=== PATIENT | female | born 1960 | race Asian ===

== ENCOUNTER → 2024-10-07 | Outpatient (CLI) | payer BC, SELFPAY ==
[2024-10-07 13:04] LABS: Collection Type, Urine Clean Catch
[2024-10-07 13:22] LABS: Bacteria,Urine 1+; Bilirubin,Urine 1+ (Negative); Blood,Urine Trace (Negative); Color,Urine Drk-Yellow (Lt Yel-Yel); Glucose, Urine Negative (Negative); Ketones,Urine Negative (Negative); Leukocyte Esterase,Urine Positive (Negative); Nitrite,Urine Positive (Negative); PH,Urine 6.5 (5.0-7.0); Protein,Urine Trace (Neg - Trace); RBC,Urine 6 /hpf (0-3); Specific Gravity,Urine 1.015 (1.001-1.035); Squamous Epithelial Cell,Urine < 1 /hpf (0-5); Transitional Epi Cells,Urine < 1 /hpf (0-5); WBC,Urine 503 /hpf (0-5)
[2024-10-07 13:27] LABS: Glucose Estimated Average 131 mg/dL (80-131); Hemoglobin A1C 6.2 % Hgb (4.8-6.0)
[2024-10-07 13:53] LABS: Clarity,Urine Hazy (Clear/Hazy); Culture Indicated,Urine Yes
== END | disposition home or self-care (01) ==
LOC: COPL 12:05
PROVIDERS: PCP Internal Medicine; Referring Provider Internal Medicine; Visit Provider Internal Medicine
DX: Z00.00 Encounter for general adult medical examination without abnormal findings (principal); N39.0 Urinary tract infection, site not specified
CPT/HCPCS: 36415; 81001; 83036; 87077; 87086; 87186

== ENCOUNTER → 2025-02-14 | Outpatient (CLI) | payer BC, SELFPAY ==
--- NOTE | 2025-02-14 13:45 | XR_ITS ---
Examination: Diagnostic digital mammography, unilateral, LEFT Computer aided detection 3-D breast Tomosynthesis, unilateral Date and time of exam: February 14, 2025 1320 hours INDICATIONS: Circumscribed 10 mm nodule retroareolar region left breast on mammogram August 19, 2024 Technique: Nonmagnified MLO, CC views of the left breast have been obtained, reconstructed from 3-D Tomosynthesis images. R2 computer aided detection program utilized for evaluation of suspicious masses and/or abnormal calcifications. 3-D Tomosynthesis images obtained. Findings: The breast is heterogeneously dense, which may obscure small masses Stable nodule retroareolar region left breast, 8 mm No suspicious mass Impression: BI-RADS category 2: Benign findings Return to yearly follow-up mammography
== END | disposition home or self-care (01) ==
LOC: CDIM 13:10
PROVIDERS: Referring Provider Internal Medicine; Visit Provider Internal Medicine
DX: R92.322 Mammographic fibroglandular density, left breast (principal)
CPT/HCPCS: 77061; 77065; G0279

== ENCOUNTER → 2025-05-26 | Outpatient (CLI) | payer BC, SELFPAY ==
[2025-05-26 16:08] LABS: Basophils # (Auto) 0.1 Thou/mm3 (0.0-0.2); Basophils % (Auto) 1 % (0-2.5); Eosinophils # (Auto) 0.2 Thou/mm3 (0.0-0.5); Eosinophils % (Auto) 3 % (0-10); Hematocrit 41.1 % (36.0-46.0); Hemoglobin 13.8 g/dL (12.0-16.0); Immature Granulocytes Auto 0.02 Thou/mm3 (0.00-0.00); Lymphocytes # (Auto) 1.8 Thou/mm3 (1.0-4.8); Lymphocytes % (Auto) 28 % (10-50); Mean Corpuscular HGB Conc 33.6 g/dl (31.0-37.0); Mean Corpuscular Hemoglobin 32.2 pg (25.0-35.0); Mean Corpuscular Volume 96 fL (80-100); Monocytes # (Auto) 0.4 Thou/mm3 (0.0-0.8); Monocytes % (Auto) 6 % (0-12); Neutrophils # (Auto) 4.0 Thou/mm3 (1.8-7.7); Neutrophils % (Auto) 62 % (37-80); Nucleated Red Blood Cell # 0.00 Thou/mm3 (0.00-0.00); Nucleated Red Blood Cell % 0 /100 WBC (0); Platelet Count 311 Thou/mm3 (140-440); RDW Standard Deviation 49.2 fL (36.4-46.3); Red Blood Count 4.29 Miln/mm3 (4.00-5.20); White Blood Count 6.5 Thou/mm3 (3.6-11.0)
[2025-05-26 16:20] LABS: Glucose Estimated Average 126 mg/dL (80-131); Hemoglobin A1C 6.0 % Hgb (4.8-6.0)
[2025-05-26 16:31] LABS: Vitamin D 25 Hydroxy Total 35.0 ng/mL (7.3-40.2)
[2025-05-26 16:33] LABS: Alanine Aminotransferase 15 U/L (10-49); Albumin, Serum 4.2 gm/dL (3.4-4.8); Albumin/Globulin Ratio 2.0 (1.2-2.2); Alkaline Phosphatase 74 U/L (46-116); Anion Gap 11 (7-16); Aspartate Amino Transferase 20 U/L (0-34); BUN/Creatinine Ratio 21 Ratio (12-20); Bilirubin,Total 0.4 mg/dL (0.3-1.2); Blood Urea Nitrogen 17 mg/dL (9-23); Calcium 9.1 mg/dL (8.3-10.6); Calcium (Corrected) 9.1 mg/dL (8.5-10.1); Carbon Dioxide 22.5 mMol/L (20.0-31.0); Cardiac Risk Estimate 2.6 RATIO (3.7-5.6); Chloride 111 mMol/L (98-107); Cholesterol 198 mg/dL (132-200); Creatinine (Component) 0.8 mg/dL (0.6-1.3); Free T4 (Free Thyroxine) 1.15 ng/dL (0.89-1.76); Globulin 2.1 gm/dL (2.3-3.5); Glucose 97 mg/dL (74-106); HDL Cholesterol 76 mg/dL (40-60); LDL Cholesterol,Calculated 81 mg/dL (0-130); Osmolality,Calculated 288 (275-295); Potassium 4.1 mMol/L (3.4-5.1); Sodium 144 mMol/L (136-145); Thyroid Stimulating Hormone 2.36 uIU/mL (0.55-4.78); Total Protein 6.3 gm/dL (5.7-8.2); Triglycerides 205 mg/dL (30-150); eGFR > 60 See Note
== END | disposition home or self-care (01) ==
LOC: COPL 15:26
PROVIDERS: PCP Internal Medicine; Referring Provider Internal Medicine; Visit Provider Internal Medicine
DX: Z00.00 Encounter for general adult medical examination without abnormal findings (principal)
CPT/HCPCS: 36415; 80053; 80061; 82306; 83036; 84439; 84443; 85025

== ENCOUNTER → 2025-06-14 | Outpatient (CLI) | payer BC, SELFPAY ==
--- NOTE | 2025-06-14 09:00 | XR_ITS ---
Examination: Screening digital mammography, bilateral Computer aided detection 3-D breast Tomosynthesis, bilateral Date and time of exam: June 14, 2025 0901 hours Compared to mammograms dating to March 02, 2017 Indication: Screening Technique: Nonmagnified MLO, CC views of the breasts to been obtained, reconstructed from 3-D Tomosynthesis images. R2 computer aided detection program utilized for evaluation of suspicious masses and/or abnormal calcifications. 3-D Tomosynthesis images obtained. Findings: The breasts are heterogeneously dense, which may obscure small masses Benign calcifications. No interval suspicious masses Impression: BI-RADS category II: Benign Findings. Recommend 1 year follow-up mammogram.
== END | disposition home or self-care (01) ==
PROVIDERS: PCP Internal Medicine; Referring Provider Internal Medicine; Visit Provider Internal Medicine
DX: Z12.31 Encounter for screening mammogram for malignant neoplasm of breast (principal); R92.323 Mammographic fibroglandular density, bilateral breasts; R92.1 Mammographic calcification found on diagnostic imaging of breast
CPT/HCPCS: 77063; 77067

== ENCOUNTER 2025-09-18 21:57 | Inpatient (IN) | payer BC, SELFPAY ==
[2025-09-18 21:59] VITALS: BMI 27.3
--- NOTE | 2025-09-18 22:05 | XR_ITS ---
EXAMINATION: PA chest single view TECHNIQUE: 1. Upright PA chest single view Date and time: September 18, 2025, 1007 hours, comparison April 18, 2024 INDICATIONS: Epigastric pain chest pain beginning 3 hours ago. FINDINGS: Normal heart size Lungs are clear Moderate osteopenia IMPRESSION: No active disease
[2025-09-18 22:06] VITALS: BP 160/83; PULSE 89; RESP 20; TEMP 36.8; O2SAT 99
--- NOTE | 2025-09-18 22:06 | XR_ITS ---
Examination: CT chest with intravenous contrast CT abdomen with intravenous contrast CT pelvis with intravenous contrast 2-D coronal and sagittal reconstructions Time of exam: September 19, 2025, 0039 hours INDICATIONS: Chest pain abdominal pain vomiting heartburn beginning 1800 hours yesterday CTDI: vol (mGy) : 9.46 DLP: (mGycm): 622 Technique: Multiple axial images of the chest, abdomen and pelvis with intravenous contrast, 3.0 mm slice thickness. Images obtained post intravenous injection Isovue 370 60 cc. 2-D sagittal and coronal reconstructions. Low dose protocols were performed. One or more of the following dose reduction techniques were used; automated exposure control, adjustment of the mA and/or KV according to patient size, use of iterative reconstruction technique. Findings: Bilateral thyroid nodules, the largest on the right side 14 mm No thoracic aortic aneurysm dilatation Pulmonary artery opacification is poor No paratracheal tracheobronchial or bronchopulmonary adenopathy 2 mm pulmonary nodule right upper lobe No pneumonia or pulmonary edema No pleural disease No visualized liver or splenic lesion Contracted gallbladder No pancreatic or adrenal mass No renal or ureteral calculi, no hydronephrosis 26 mm fat-containing umbilical hernia Normal appendix Multiple prominently fluid distended small bowel loops Atrophic uterus Moderate osteopenia Minimal air in the urinary bladder, clinical correlation advised IMPRESSION: High-grade small bowel obstruction, consider Gastrografin small bowel study follow-up Bilateral thyroid nodules, consider dedicated thyroid sonography follow-up
--- NOTE | 2025-09-18 22:07 | PD.EDRME ---
Rapid Medical Screening Exam RME Arrival date/time: 09/18/25 21:57 Chief Complaint: Abdominal Pain Time Seen by Provider: 09/18/25 21:59 Vital signs: Vital Signs Temperature 98.2 F 09/18/25 22:06 Pulse Rate 89 09/18/25 22:06 Respiratory Rate 20 09/18/25 22:06 Blood Pressure 160/83 H 09/18/25 22:06 Pulse Oximetry (%) 99 09/18/25 22:06 Oxygen Delivery Method Room Air 09/18/25 22:06 RME Narrative: 65-year-old female with a past medical history of diabetes complaining of sudden onset epigastric pain with nausea vomiting, feeling as if her abdomen is expanding. I briefly performed a screening evaluation to initiate work-up and expedite care. Complete history, physical exam, and plan of care is deferred to the provider in the main ED. Exam: Head: Normocephalic, atraumatic. Respiratory: Normal effort. No respiratory distress or accessory muscle use. Neuro: Speech normal. Skin: Warm, dry, normal color. Psych: Pleasant. Normal affect. Cooperative. Clinical Impression: Epigastric pain
[2025-09-18 22:45] LABS: Basophils # (Auto) 0.1 Thou/mm3 (0.0-0.2); Basophils % (Auto) 0 % (0-2.5); Eosinophils # (Auto) 0.2 Thou/mm3 (0.0-0.5); Eosinophils % (Auto) 2 % (0-10); Hematocrit 43.9 % (36.0-46.0); Hemoglobin 14.4 g/dL (12.0-16.0); Immature Granulocytes Auto 0.04 Thou/mm3 (0.00-0.00); Lymphocytes # (Auto) 1.9 Thou/mm3 (1.0-4.8); Lymphocytes % (Auto) 15 % (10-50); Mean Corpuscular HGB Conc 32.8 g/dl (31.0-37.0); Mean Corpuscular Hemoglobin 31.7 pg (25.0-35.0); Mean Corpuscular Volume 97 fL (80-100); Monocytes # (Auto) 0.7 Thou/mm3 (0.0-0.8); Monocytes % (Auto) 5 % (0-12); Neutrophils # (Auto) 9.3 Thou/mm3 (1.8-7.7); Neutrophils % (Auto) 77 % (37-80); Nucleated Red Blood Cell # 0.00 Thou/mm3 (0.00-0.00); Nucleated Red Blood Cell % 0 /100 WBC (0); Platelet Count 277 Thou/mm3 (140-440); RDW Standard Deviation 46.5 fL (36.4-46.3); Red Blood Count 4.54 Miln/mm3 (4.00-5.20); White Blood Count 12.1 Thou/mm3 (3.6-11.0)
[2025-09-18 23:03] LABS: Alanine Aminotransferase 23 U/L (10-49); Albumin, Serum 4.9 gm/dL (3.4-4.8); Albumin/Globulin Ratio 2.7 (1.2-2.2); Alkaline Phosphatase 89 U/L (46-116); Anion Gap 9 (7-16); Aspartate Amino Transferase 27 U/L (0-34); BUN/Creatinine Ratio 18 Ratio (12-20); Bilirubin,Total 0.3 mg/dL (0.3-1.2); Blood Urea Nitrogen 14 mg/dL (9-23); Calcium 9.4 mg/dL (8.3-10.6); Calcium (Corrected) 9.4 mg/dL (8.5-10.1); Carbon Dioxide 24.9 mMol/L (20.0-31.0); Chloride 110 mMol/L (98-107); Creatinine (Component) 0.8 mg/dL (0.6-1.3); Estimated Creatinine Clearance 78.1 mL/min (>60); Globulin 1.8 gm/dL (2.3-3.5); Glucose 140 mg/dL (74-106); Lipase 54 U/L (12-53); Osmolality,Calculated 289 (275-295); Potassium 4.0 mMol/L (3.4-5.1); Sodium 144 mMol/L (136-145); Total Protein 6.7 gm/dL (5.7-8.2); Troponin I < 0.002 ng/mL (0.0-0.045); eGFR > 60 See Note
[2025-09-18 23:09] LABS: INR 0.9 (0.9-1.3); Partial Thromboplastin Time 26.8 Seconds (22.0-36.0); Prothrombin Time 9.8 Seconds (9.0-12.2)
--- NOTE | 2025-09-18 23:48 | PD.EDABDPN ---
ED Abdominal Pain RME/HPI General Chief Complaint: Abdominal Pain Stated complaint: ABD PAIN RADIATES TO BACK, VOMITING, HURTBURN Time seen by provider: 09/18/25 21:59 Arrival date/time: 09/18/25 21:57 RME / HPI RME / HPI narrative: 65-year-old female with a past medical history of diabetes complaining of sudden onset epigastric pain with nausea vomiting, feeling as if her abdomen is expanding. I briefly performed a screening evaluation to initiate work-up and expedite care. Complete history, physical exam, and plan of care is deferred to the provider in the main ED. Dr. 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 Patient reports associated N/V. Denies any diarrhea, fever, chills, or any other associated symptoms. Denies any history of similar symptoms. NKA. Related Data Home Medications ?Medication ?Instructions ?Recorded ?Confirmed Metformin Hcl 500 mg PO BID ##0 01/30/13 02/14/20 FLUTICASONE/SALMETEROL (ADVAIR 1 puff inhalation BID ##60 06/25/16 02/14/20 100/50 DISKUS) Losartan Potassium * (COZAAR *) 25 mg PO BID ##60 06/25/16 02/14/20 Tramadol Hcl 50 mg PO PRN PRN PAIN ##60 06/25/16 02/14/20 albuterol sulfate 90 mcg/actuation 2 puff inhalation PRN PRN WHEEZING 06/25/16 02/14/20 aerosol inhaler (ProAir HFA) ##9 insulin detemir U-100 100 unit/mL 5 unit subcut QDAY blood sugar 06/25/16 02/14/20 (3 mL) subcutaneous pen (Levemir ##30 FlexTouch U-100 Insulin) Previous Rx's ?Medication ?Instructions ?Recorded promethazine-DM 6.25 mg-15 mg/5 mL 5 ml PO Q6H PRN cough #120 mL 02/14/20 oral syrup Allergies Allergy/AdvReac Type Severity Reaction Status Date / Time No Known Allergies Allergy Verified 09/18/25 21:59 Review of Systems Review of Systems Systems Reviewed: All systems reviewed, normal except as documented Past Medical History Past Medical History CARDIAC: Negative Congestive Heart Failure RESPIRATORY: Negative Chronic Obstructive Pulmonary Disease (COPD) GENITOURINARY: Negative Renal Disease ENDOCRINE: Positive Diabetes Mellitus Type 2; Negative Diabetes Mellitus Type 1 Social History SMOKING STATUS: Never smoker ED Exam Narrative Physical exam: Generally patient is alert and vomiting here in the emergency room, heart regular rate and rhythm, lungs clear to auscultation equal bilaterally, abdomen is soft slightly distended and tympanic and tender to the midportion of the abdomen, neurologic exam [place] Coma Scale 15 without focal motor deficit Course Quality Measures none Orders Category Date Time Status CT Screening NOW Care 09/18/25 22:06 Active EKG (ED ONLY) *Do not use* NOW Care 09/18/25 22:03 Completed EKG (ED ONLY) *Do not use* NOW Care 09/18/25 22:05 Completed Insert NG / OG tube NOW Care 09/19/25 03:07 Active NPO NOW Care 09/18/25 22:05 Active Diet NPO (NOW) Diet 09/18/25 22:[address] chest abdomen pelvis w Stat Exams 09/18/25 22:06 Taken EKG (ED Only) Stat Exams 09/18/25 22:03 Ordered EKG (ED Only) Stat Exams 09/18/25 22:05 Stop Req XR chest 1V Stat Exams 09/18/25 22:05 Completed CBC Stat Lab 09/18/25 22:37 Completed CMP [Comprehensive Metabolic Panel] Stat Lab 09/18/25 22:37 Completed Lipase Stat Lab 09/18/25 22:37 Completed Partial Thromboplastin Time Stat Lab 09/18/25 22:37 Completed Prothrombin Time with INR Stat Lab 09/18/25 22:37 Completed Troponin I Stat Lab 09/18/25 22:37 Completed Midazolam Inj [Versed Inj] Med 09/19/25 03:07 Once 4 mg IVP X1 ONE Morphine* Inj Med 09/18/25 23:11 Discontinued 4 mg IV X1 ONE Morphine* Inj Med 09/19/25 01:32 Discontinued 4 mg IVP X1 ONE Ondansetron Inj [Zofran Inj] Med 09/18/25 23:11 Discontinued 4 mg IVP X1 ONE Ondansetron Inj [Zofran Inj] Med 09/19/25 01:32 Discontinued 4 mg IVP X1 ONE Pantoprazole Inj [Protonix Inj] Med 09/18/25 23:54 Discontinued 40 mg IVP X1 ONE Vital Signs Vital signs: Vital Signs Temperature 98.2 F 09/18/25 22:06 Pulse Rate 89 09/18/25 22:06 Respiratory Rate 20 09/18/25 22:06 Blood Pressure 160/83 H 09/18/25 22:06 Pulse Oximetry (%) 99 09/18/25 22:06 Oxygen Delivery Method Room Air 09/18/25 22:06 Abdominal Pain MDM MDM Narrative MDM Narrative:: Scribe Attestation: 09/18/25 - Marco Antonio, Debra Mahoney am scribing for and in the presence of Dr. Louis. I interpreted all labs. CT scan done the abdomen and pelvis with IV contrast showed evidence for small bowel obstruction. I did discuss this case with general surgeon on-call, Dr. Carias who agrees with NG tube placement. The patient has had gastric bypass surgery with Ramu-en-Y procedure in the past. Patient has received morphine 4 mg IV x 2 and Zofran 4 mg IV x 2 and hydrated with normal saline. I discussed this case with the hospitalist and the patient will be admitted to the hospital for further treatment and evaluation. The patient will receive Versed 4 mg IV prior to NG tube placement. Patient data External records reviewed:: [facility] previous records (Per chart review, patient has no relevant previous ED visits.) Clinical information provided by:: patient Social determinants that could affect healthcare access:: none Patient has the following chronic illnesses:: DM, HTN How is presenting disease/condition affected by chronic disease/condition?: uneffected by Evaluation data The following diagnostics were reviewed and interpreted by me:: lab results and radiology exam(s) Lab and/or radiology exams considered but not ordered:: none Interpretation Summary: [facility] Preliminary Report Draft Patient: PATRICIA BALL. Record#: [id number] Birthdate: 1960 Age/Sex: 65 / F Location: [facility] Attending Dr: Ordering Physician: Date of Service: Procedure(s): Accession Number(s): cc: ~ CT scan of the chest, abdomen and pelvis with intravenous contrast (axial sections with sagittal and coronal reformats) September 19, 2025 at 0037 hours Clinical History: Epigastric pain. Comparison: None available at the time of this report. Findings: The lungs are clear. There is no pleural effusion or pneumothorax. The aorta is unremarkable without evidence of dissection or aneurysm. No evidence of mediastinal mass or lymphadenopathy. There is no pericardial effusion. The liver, gallbladder, spleen, pancreas, adrenals and kidneys are unremarkable. Dilated small bowel loops measuring up to 5.1 cm with air-fluid levels within and transition point in the mid abdomen. The appendix is within normal limits. Air within the urinary bladder. There is no free fluid or air. Degenerative changes of the imaged portions of the spine. No acute fractures. Hypodense thyroid nodules, the largest measuring 1.4 cm. Status post gastric bypass surgery. Fat-containing umbilical hernia without evidence of inflammation. The uterus and ovaries are within normal limits. Impression: Small bowel obstruction, probably due to adhesions. Air within the urinary bladder suspicious for cystitis. Hypodense thyroid nodules, please correlate with thyroid function tests and ultrasound. Discussion Details: Results verbally communicated to : Dr. Louis at 02:26 AM 09/19/2025 Report Electronically Signed By: Dylan Del Rosario 09/19/2025 2:46:03 AM [EST] Medications / Prescriptions Medications or Prescriptions considered but not ordered:: none Medication administrations:: Medication Administration History Midazolam HCl (Midazolam Inj 1 Mg/Ml Vial 2 Ml) 4 mg IVP X1 ONE Stop: 09/19/25 03:08 Discontinued Medications Morphine Sulfate (Morphine Sulf Inj 4 Mg/Ml Vial) 4 mg IV X1 ONE Stop: 09/18/25 23:12 Last Admin: 09/18/25 23:49 Dose: 4 mg Documented By: EE Morphine Sulfate (Morphine Sulf Inj 4 Mg/Ml Vial) 4 mg IVP X1 ONE Stop: 09/19/25 01:33 Last Admin: 09/19/25 02:06 Dose: 4 mg Documented By: EE Ondansetron HCl (Ondansetron Inj 2 Mg/Ml Inj 2 Ml) 4 mg IVP X1 ONE; Protocol Stop: 09/18/25 23:12 Last Admin: 09/18/25 23:49 Dose: 4 mg Documented By: EE Ondansetron HCl (Ondansetron Inj 2 Mg/Ml Inj 2 Ml) 4 mg IVP X1 ONE; Protocol Stop: 09/19/25 01:33 Last Admin: 09/19/25 02:06 Dose: 4 mg Documented By: ROMY Pantoprazole Sodium (Pantoprazole Inj 40 Mg Vial) 40 mg IVP X1 ONE Stop: 09/18/25 23:55 Last Admin: 09/19/25 00:00 Dose: 40 mg Documented By: ROMY see above Consultations Consultation(s) initiated? (list below): Yes Diagnosis Differential diagnosis abdominal pain: other (See MDM) Most likely diagnosis given after review of the tests above:: see clinical impression below Admission Indicated Admission indicated?: indicated Admission Request Was there a request for admission?: Yes Admission Attestation Admission request attestation: Discussed case with [] from Hospitalist service regarding admission. Discussed patients ED course, exam findings, labs, and radiology results. The Hospitalist [agrees,declines] to accept the patient for admission. Disposition Plan Disposition Plan: Admit Discharge Plan Plan Patient Disposition: Admit Acute Care w/in Hospital Prescriptions/Referrals Prescriptions/Med Rec: No Action Metformin Hcl 500 MG tablet 500 mg PO BID Qty: 0 Levemir FlexTouch U100 Insulin 100 UNIT/1 ML insulin pen 5 unit Sub-Q QDAY Qty: 30 Losartan Potassium * (COZAAR *) 25 MG tablet 25 mg PO BID Qty: 60 Tramadol Hcl 50 MG tablet 50 mg PO PRN PRN (Reason: PAIN) Qty: 60 albuterol sulfate [ProAir HFA] 8.5 GM HFA aerosol inhaler 2 puff Inhalation PRN PRN (Reason: WHEEZING) Qty: 9 FLUTICASONE/SALMETEROL (ADVAIR 100/50 DISKUS) 1 DISK W/DEV DISK.W.DEV 1 puff Inhalation BID Qty: 60 promethazine-DM 6.25-15 mg/5 mL syrup 5 ml PO Q6H PRN (Reason: cough) Qty: 120 0RF Referrals: Gómez Mark MD [Primary Care Provider, Internal Medicine] - In 1 week Problem List Clinical Impression: SBO (small bowel obstruction) Patient/Caregiver Discharge Instructions Print Language: Ethiopian Stand Alone Forms: Olivia Award Info., Patient Portal Info Letter
[2025-09-18] MEDS: ONDANSETRON INJ 2 MG/ML INJ 2 ML 4 MG IVP (23:49)
[2025-09-18] MEDS: MORPHINE SULF INJ 4 MG/ML VIAL IV (23:49)
[2025-09-18 23:56] VITALS: BP 154/100; PULSE 85; RESP 18; TEMP 37.2; O2SAT 97
[2025-09-19] VITALS (10 sets, daily range): BP systolic 124–176; BP diastolic 67–87; PULSE 69–85; RESP 17–19; TEMP 36.4–37.1; O2SAT 94–100; BMI 28.0
[2025-09-19] MEDS: MORPHINE SULF INJ 4 MG/ML VIAL IVP (02:06)
[2025-09-19] MEDS: ONDANSETRON INJ 2 MG/ML INJ 2 ML 4 MG IVP (02:06)
--- NOTE | 2025-09-19 02:46 | PRELIM_ITS ---
CT scan of the chest, abdomen and pelvis with intravenous contrast (axial sections with sagittal and coronal reformats) September 19, 2025 at 0037 hours Clinical History: Epigastric pain. Comparison: None available at the time of this report. Findings: The lungs are clear. There is no pleural effusion or pneumothorax. The aorta is unremarkable without evidence of dissection or aneurysm. No evidence of mediastinal mass or lymphadenopathy. There is no pericardial effusion. The liver, gallbladder, spleen, pancreas, adrenals and kidneys are unremarkable. Dilated small bowel loops measuring up to 5.1 cm with air-fluid levels within and transition point in the mid abdomen. The appendix is within normal limits. Air within the urinary bladder. There is no free fluid or air. Degenerative changes of the imaged portions of the spine. No acute fractures. Hypodense thyroid nodules, the largest measuring 1.4 cm. Status post gastric bypass surgery. Fat-containing umbilical hernia without evidence of inflammation. The uterus and ovaries are within normal limits. Impression: Small bowel obstruction, probably due to adhesions. Air within the urinary bladder suspicious for cystitis. Hypodense thyroid nodules, please correlate with thyroid function tests and ultrasound. Discussion Details: Results verbally communicated to : Dr. Louis at 02:26 AM 09/19/2025 Report Electronically Signed By: Dylan Del Rosario 09/19/2025 2:46:03 AM [EST]
[2025-09-19] MEDS: BENZOCAINE 20% (Hurricaine) SPRAY 1 DOSE TOP ×2 (03:51→13:55)
[2025-09-19] MEDS: MIDAZOLAM INJ 1 MG/ML VIAL 2 ML 4 MG IVP (03:53)
--- NOTE | 2025-09-19 03:55 | ESHP_ITS ---
<Statement entered by Aaron Chamberlain MD - 09/19/25 20:24> I have discussed and was present for the essential components of the history, physical examination, diagnosis, and treatment plan with the resident. I agree with the patient's care as documented by the resident and amended herein by me. Aaron Chamberlain MD FACP. 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 Patient admitted for SBO. ED Course Summary Vitals: BP 160/83 HR 89 RR 20 T 98.2F O2sat 99%RA Labs: WBC 12.1 coags wnl glucose 140 lipase 54 Imaging: CXR no active disease CTAP preliminary read: SBO Treatment: Zofran 4mg (x2) Pantoprazole 40mg Morphine 4mg (x2) Consults and why: Dr. Carias consulted for SBO. Upon inital examination patient is sitting comfortably in bed, stating the pain medication and zofran has helped her immensely. Symptoms of abdominal pain and nausea began instantly before eating [employer]. She took a suppository but it did not help her defecate. last BM was in AM. No longer passing gas. She described the pain as midline/epigastric and wrapping around to her back. Patient reports associated N/V, but pain only resolved momentarily ith brief vomiting due to pain. Nausea and pain recur in waves. Denies any diarrhea, fever, chills, or any other associated symptoms. Denies any history of similar symptoms. 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 Exam Vital Signs Temp Pulse Resp BP Pulse Ox O2 Del Method 98.1 F 83 18 151/87 H 96 Room Air 09/19/25 02:09 09/19/25 02:09 09/19/25 02:09 09/19/25 02:09 09/19/25 02:09 09/19/25 02:09 Narrative Exam GENERAL APPEARANCE: AOx3. NAD, activity normal for age, well developed/ well nourished, no cyanosis, pallor, or diaphoresis. HEENT: Normocephalic atraumatic, no facial trauma, neck is supple. Lids/conjunctiva normal. Mucous membranes moist, nares normal, lips/teeth normal uvula midline without oral pharyngeal erythema, exudate or swelling TMs normal bilaterally. No lymphangitis/lymphedema. CARDIAC: Regular rate and rhythm, S1+S2 heard. No murmurs, rubs, or gallops noted RESPIRATORY: respiratory effort normal, speaks in full sentences, no tripod position, no accessory muscle use. Lungs clear to auscultation without rhonchi, wheezes, rales ABDOMINAL: NBS. Soft, ND. +TTP at epigastrium and midline abdomen. No evidence of fluid wave. No pulsatile masses on exam, rebound tenderness, So sign or pain over Mcburney's point. MUSCLES/EXTREMITIES: No abnormal range of motion, no swelling. DERM: Warm, pink and dry. No rashes, dermatoses, petechiae or lesions. NEUROLOGICAL: Speech is clear and appropriate. Normal level of consciousness. Gait and coordination are normal. 5/5 strength in all extremities. PSYCH: Normal mood and affect. Judgement/competence is appropriate Results: Labs 09/18/25 22:37 09/18/25 22:37 Labs: Short CBC 09/18/25 Range/Units 22:37 WBC 12.1 H (3.6-11.0) Thou/mm3 Hgb 14.4 (12.0-16.0) g/dL Hct 43.9 (36.0-46.0) % Plt Count 277 (140-440) Thou/mm3 BMP 09/18/25 22:37 Sodium 144 Potassium 4.0 Chloride 110 H Carbon Dioxide 24.9 BUN 14 Creatinine 0.8 Glucose 140 H Calcium 9.4 Cardiac Enzymes 09/18/25 Range/Units 22:37 Troponin I < 0.002 (0.0-0.045) ng/mL Liver Function 09/18/25 Range/Units 22:37 Total Bilirubin 0.3 (0.3-1.2) mg/dL AST 27 (0-34) U/L ALT 23 (10-49) U/L Alkaline Phosphatase 89 (46-116) U/L Albumin 4.9 H (3.4-4.8) gm/dL Quality Measures Quality Measures none Medications Home Medications and Allergies Home Medications ?Medication ?Instructions ?Recorded ?Confirmed ?Type Metformin Hcl 500 mg PO BID ##0 01/30/13 0 02/14/20 History FLUTICASONE/SALMETEROL (ADVAIR 1 puff inhalation BID # #60 06/25/16 02/14/20 History 100/50 DISKUS) Losartan Potassium * (COZAAR *) 25 mg PO BID ##60 /02/1502/14/20 History Tramadol Hcl 50 mg PO PRN PRN PAIN ##60 0 06/25/16 02/14/20 History albuterol sulfate 90 mcg/actuation 2 puff inhalation P RN PRN WHEEZING 06/25/16 02/14/20 History aerosol inhaler (ProAir HFA) ##9 insulin detemir U-100 100 unit/mL 5 unit subcut QDAY b lood sugar 06/25/16 02/14/20 History (3 mL) subcutaneous pen (Levemir ##30 FlexTouch U-100 Insulin) Allergies Allergy/AdvReac Type Severity Reaction Status Date / Time No Known Allergies Allergy Verified 09/18/25 21:59 Visit Medications Acetaminophen (Acetaminophen 325 Mg Tablet) 650 mg PO Q6H PRN PRN Reason: Fever >100.4 or pain 1-3 Stop: 10/19/25 03:41 Hydrocodone Bitart/Acetaminophen (Hydrocodone/Apap 5/325 Tablet) 1 tab PO Q4HR PRN PRN Reason: PAIN SCALE 4-6 (Moderate Stop: 09/24/25 03:41 Albuterol/Ipratropium (Albuterol/Ipratropium (Duoneb) Rt Lyric 3 Ml Nebu) 3 ml INH Q4HRRT LUC Stop: 10/19/25 06:59 Docusate Sodium (Docusate Sod 100 Mg Capsule) 100 mg PO QDAY [facility]; Protocol Stop: 10/19/25 08:59 Lactated Ringer's (Lactated Ringers) 1,000 mls @ 75 mls/hr IV .[id number] [facility] Stop: 10/19/25 03:44 Ketorolac Tromethamine (Ketorolac Inj 30 Mg/Ml Vial) 30 mg IVP Q6HR PRN PRN Reason: Severe pain 7-10 Stop: 09/24/25 03:46 Ondansetron HCl (Ondansetron Inj 2 Mg/Ml Inj 2 Ml) 4 mg IVP Q6H PRN; Protocol PRN Reason: NAUSEA OR VOMITING Stop: 10/19/25 03:41 Pantoprazole Sodium (Pantoprazole 40 Mg Tablet) 40 mg PO QDAY [facility] Stop: 10/19/25 08:59 Discontinued Medications Benzocaine (Benzocaine 20% (Hurricaine) [place] 1 Dose) 0 dose TOP X1 ONE Stop: 09/19/25 03:42 Last Admin: 09/19/25 03:51 Dose: 1 dose Midazolam HCl (Midazolam Inj 1 Mg/Ml Vial 2 Ml) 4 mg IVP X1 ONE Stop: 09/19/25 03:08 Last Admin: 09/19/25 03:53 Dose: 4 mg Morphine Sulfate (Morphine Sulf Inj 4 Mg/Ml Vial) 4 mg IV X1 ONE Stop: 09/18/25 23:12 Last Admin: 09/18/25 23:49 Dose: 4 mg Morphine Sulfate (Morphine Sulf Inj 4 Mg/Ml Vial) 4 mg IVP X1 ONE Stop: 09/19/25 01:33 Last Admin: 09/19/25 02:06 Dose: 4 mg Ondansetron HCl (Ondansetron Inj 2 Mg/Ml Inj 2 Ml) 4 mg IVP X1 ONE; Protocol Stop: 09/18/25 23:12 Last Admin: 09/18/25 23:49 Dose: 4 mg Ondansetron HCl (Ondansetron Inj 2 Mg/Ml Inj 2 Ml) 4 mg IVP X1 ONE; Protocol Stop: 09/19/25 01:33 Last Admin: 09/19/25 02:06 Dose: 4 mg Pantoprazole Sodium (Pantoprazole Inj 40 Mg Vial) 40 mg IVP X1 ONE Stop: 09/18/25 23:55 Last Admin: 09/19/25 00:00 Dose: 40 mg Assessment & Plan Plan 65yo female with a history of Ramu-en-Y gastric bypass (>10 years ago), DM, HTN, asthma presents to the ED for a chief complaint of sudden onset upper abdominal pain that radiates to her back. Patient admitted for SBO. Dr. Carias consulted NGT placed LIS. Patient NPO. #SBO Hx of Ramu-en-Y gastric bypass. New onset acute abdominal epigastric and midline pain, causing +NV due to pain. Vomiting moderatley helped her symptoms, but recurred in waves. Patient placed suppository which has not helped her defecate or pass gas. Not currently flatulent or been so since the event. Last BM in AM. On exam, soft abdomen without guarding or rebound tenderness, TTP at midline from epigastrium to bladder. Less likely due to pancreatitis, since lipase is barely elevated, pain may feel like it is going to back, but no signs of pancreatitis on CT imaging. Plan: -NPO -NGT-LIS -Dr. Carias consulted -Tylenol for pain 1-3 -Narco 5 for pain 4-6 -Toradol for pain 7-10 #Hx of DMII On insulin in the past, currently on taking metformin. Glucose 140 at admission. Plan: -ISS -Bedside glucose checks ACHS #Hx of HTN Losartan 100mg PO QD at home Plan: -Restarted losartan, but will not be given due to NPO status. #Hx of Asthma Plan: -Incentive spirometry -Duonebs Q4hr prn #Incidental finding on imaging Air within the urinary bladder suspicious for cystitis. Hypodense thyroid nodules, please correlate with thyroid function tests and ultrasound. Patient not mentioning any symptoms of dysuria or bladder pain. TSH within normal range on all prior labs. Plan: -Consider outpatient [facility] Health Maintenance: Code status: Full DVT prophylaxis: SCDs pending surgery GI prophylaxis: protonix Diet: NPO Echavarria: None Lines: PIV Supplemental O2: None Disposition: Med surg for SBO Patient seen and reviewed with attending Dr. Chamberlain. Note written by Cody Duarte MD PGY-1
--- NOTE | 2025-09-19 04:07 | XR_ITS ---
EXAMINATION: AP chest single view TECHNIQUE: AP portable upright chest single view Date and time: September 19, 2025, 0420 hours, comparison September 18, 2025 INDICATIONS: Post orogastric tube placement FINDINGS: Orogastric tube tip proximal stomach Normal heart size Lungs are clear IMPRESSION: Advance the orogastric tube 4 cm
[2025-09-19 05:02] LABS: Basophils # (Auto) 0.0 Thou/mm3 (0.0-0.2); Basophils % (Auto) 0 % (0-2.5); Eosinophils # (Auto) 0.1 Thou/mm3 (0.0-0.5); Eosinophils % (Auto) 1 % (0-10); Hematocrit 39.3 % (36.0-46.0); Hemoglobin 13.2 g/dL (12.0-16.0); Immature Granulocytes Auto 0.02 Thou/mm3 (0.00-0.00); Lymphocytes # (Auto) 1.2 Thou/mm3 (1.0-4.8); Lymphocytes % (Auto) 13 % (10-50); Mean Corpuscular HGB Conc 33.6 g/dl (31.0-37.0); Mean Corpuscular Hemoglobin 32.3 pg (25.0-35.0); Mean Corpuscular Volume 96 fL (80-100); Monocytes # (Auto) 0.5 Thou/mm3 (0.0-0.8); Monocytes % (Auto) 6 % (0-12); Neutrophils # (Auto) 7.2 Thou/mm3 (1.8-7.7); Neutrophils % (Auto) 80 % (37-80); Nucleated Red Blood Cell # 0.00 Thou/mm3 (0.00-0.00); Nucleated Red Blood Cell % 0 /100 WBC (0); Platelet Count 262 Thou/mm3 (140-440); RDW Standard Deviation 46.7 fL (36.4-46.3); Red Blood Count 4.09 Miln/mm3 (4.00-5.20); White Blood Count 9.0 Thou/mm3 (3.6-11.0)
[2025-09-19 05:19] LABS: Alanine Aminotransferase 19 U/L (10-49); Albumin, Serum 4.4 gm/dL (3.4-4.8); Albumin/Globulin Ratio 2.8 (1.2-2.2); Alkaline Phosphatase 78 U/L (46-116); Anion Gap 8 (7-16); Aspartate Amino Transferase 17 U/L (0-34); BUN/Creatinine Ratio 23 Ratio (12-20); Bilirubin,Total 0.5 mg/dL (0.3-1.2); Blood Urea Nitrogen 16 mg/dL (9-23); Calcium 9.1 mg/dL (8.3-10.6); Calcium (Corrected) 9.1 mg/dL (8.5-10.1); Carbon Dioxide 24.4 mMol/L (20.0-31.0); Chloride 110 mMol/L (98-107); Creatinine (Component) 0.7 mg/dL (0.6-1.3); Estimated Creatinine Clearance 89.2 mL/min (>60); Globulin 1.6 gm/dL (2.3-3.5); Glucose 146 mg/dL (74-106); Magnesium 2.3 mg/dL (1.6-2.6); Osmolality,Calculated 287 (275-295); Phosphorous 3.8 mg/dL (2.4-5.1); Potassium 4.2 mMol/L (3.4-5.1); Sodium 142 mMol/L (136-145); Total Protein 6.0 gm/dL (5.7-8.2); eGFR > 60 See Note
[2025-09-19] MEDS: RINGERS LACTATED 1000 ML 1,000 ML 75 ML IV ×2 (05:44→17:55)
[2025-09-19] MEDS: ALBUTEROL/IPRATROPIUM (Duoneb) RT SOL 3 ML NEBU INH ×2 (06:13→10:22)
--- NOTE | 2025-09-19 08:31 | XR_ITS ---
EXAMINATION: AP chest single view TECHNIQUE: AP portable semiupright chest single view Date and time: September 19, 2025, 0910 hours INDICATIONS: Post orogastric tube placement. FINDINGS: Orogastric tube sidehole projects just beyond the GE junction Normal heart size No aspiration pneumonia IMPRESSION: Advance the orogastric tube 5 cm
--- NOTE | 2025-09-19 12:03 | XR_ITS ---
EXAMINATION: Small bowel series AP supine abdomen 3 views Date and time: September 19, 2025, 1519 hours INDICATIONS: Abdominal distention small bowel obstruction pattern on CT abdomen study September 19, 2025 0037 hours TECHNIQUE AND FINDINGS: Patient received 120 cc Gastrografin with AP portable supine abdomen immediate 30-minute and 1 hour Mildly contrast distended small bowel loops Most of the contrast is in the colon on the 1 hour film IMPRESSION: Negative for small bowel obstruction No further films are needed
--- NOTE | 2025-09-19 13:19 | XR_ITS ---
EXAMINATION: AP chest single view TECHNIQUE: AP portable upright chest single view Date and time: September 19, 2025, 1350 hours INDICATIONS: Post orogastric tube placement. FINDINGS: Orogastric tube tip in the body of the stomach Normal heart size Lungs are clear IMPRESSION: Satisfactory position of orogastric tube
--- NOTE | 2025-09-19 13:43 | PD.SURCONS ---
HPI Consult details History of present illness: 65F with HTN DM, gastric bypass >10 years ago presenting with abdominal pain and nausea. Pt reports symptoms began yesterday actually before eating, and she has never had similar pain. The pain was in the epigastrium radiating to the back associated with nausea/vomiting. CT indicated high grade SBO. Pt did have a BM yesterday before admission. As of this morning pt reported feeling better with no more pain or nausea, had an NG in place but it has not yet been connected to suction as it needed to be advanced past the GE junction PMH: HTN, DM PSHx: Gastric bypass in [place] >10 years ago, lost 75 lbs Meds: Metformin, losartan, albuterol Allergies: Morphine Family hx: no known malignancy Pt states she had a colonoscopy approx 10 years ago, is unsure of all the findings Review of Systems Review of Systems ROS Unobtainable: All systems reviewed & no additional complaints except as documented Meds Home Medications and Allergies Home Medications ?Medication ?Instructions ?Recorded ?Confirmed ?Type Metformin Hcl 1,000 mg PO BID ##0 01/30/13 09/19/25 History FLUTICASONE/SALMETEROL (ADVAIR 1 puff inhalation BID PRN wheezing 06/25/16 09/19/25 History 100/50 DISKUS) ##60 Losartan Potassium * (COZAAR *) 100 mg PO QDAY ##60 06/25/16 09/19/25 History albuterol sulfate 90 mcg/actuation 2 puff inhalation PRN PRN WHEEZING 06/25/16 09/19/25 History aerosol inhaler (ProAir HFA) ##9 bupropion HCl 150 mg tablet,12 hr 150 mg PO Q12H 09/19/25 09/19/25 History sustained-release hydrochlorothiazide 25 mg tablet 25 mg PO QDAY 09/19/25 09/19/25 History meloxicam 15 mg tablet 15 mg PO QDAY 09/19/25 09/19/25 History Allergies Allergy/AdvReac Type Severity Reaction Status Date / Time No Known Allergies Allergy Verified 09/18/25 21:59 Exam Vital Signs Temp Pulse Resp BP Pulse Ox O2 Del Method 98.5 F 74 19 159/75 H 96 Room Air 09/19/25 12:00 09/19/25 12:00 09/19/25 12:00 09/19/25 12:00 09/19/25 12:00 09/19/25 12:00 Constitutional Constitutional: no acute distress Routine Respiratory Exam Respiratory: Present no resp distress Routine Abdominal Exam Abdominal: Present soft; Absent tenderness or distended Results Results: Laboratory Laboratory results: results reviewed Results: Imaging CT scan - abdomen: report reviewed and image reviewed Assessment & Plan Plan 65F with HTN DM, gastric bypass >10 years ago presenting with abdominal pain and nausea, findings of SBO on CT. Clinically pt appears well with no further pain or nausea and has not yet undergone NG decompression Follow up small bowel series If/when contrast reaches colon can take out NG and initiate CLD
--- NOTE | 2025-09-19 18:02 | PC.NURSE ---
Dr Johnson made aware that xray department have called and stated that small bowel obstruction has been resolved. No further orders received
[2025-09-19] MEDS: ACETAMINOPHEN IVPB 1,000 MG/100 ML VIAL 250 MG IV (20:21)
--- NOTE | 2025-09-19 21:00 | ESPR_ITS ---
<Statement entered by Ying Watson MD - 09/21/25 05:43> Patient was seen and examined at bedside. I agree on the assessment and plan on this note as documented by resident Dr Vinh Sevilla DO PGY1. 65-year-old female with past medical history as below admitted overnight for small bowel obstruction, NG tube was placed. We will order small bowel series General Surgery is on board. However patient reports that her abdomen tenderness and pain has improved significantly post NG tube placement. We will continue with pain management and Gastrografin follow-through Case discussed with attending Dr. Ralph Watson MD PGY-2 Documentation for date of: 09/19/25 Subjective Subjective Interval history: Patient states that her abdominal discomfort and bloating began yesterday and late evening. She placed a rectal suppository, but that was minimally helpful in generating a very small BM and minor flatulence. Patient had been nauseous and vomiting. Denies any diarrhea, fever, chills. The abdominal pain and bloating have since improved. Patient received NG tube. She is able to pass flatus but has not had a bowel movement yet. Exam Vital Signs Temp Pulse Resp BP Pulse Ox O2 Del Method 97.6 F 71 17 135/78 H 98 Room Air 09/19/25 20:00 09/19/25 20:00 09/19/25 20:00 09/19/25 20:00 09/19/25 20:00 09/19/25 20:00 Narrative Exam GENERAL APPEARANCE: AOx3. NAD, activity normal for age, well developed/ well nourished, no cyanosis, pallor, or diaphoresis. HEENT: Normocephalic atraumatic, no facial trauma, neck is supple. Lids/conjunctiva normal. Mucous membranes moist, nares normal, lips/teeth normal uvula midline without oral pharyngeal erythema, exudate or swelling TMs normal bilaterally. No lymphangitis/lymphedema. CARDIAC: Regular rate and rhythm, S1+S2 heard. No murmurs, rubs, or gallops noted RESPIRATORY: respiratory effort normal, speaks in full sentences, no tripod position, no accessory muscle use. Lungs clear to auscultation without rhonchi, wheezes, rales ABDOMINAL: NBS. Soft, ND. +TTP at epigastrium and midline abdomen. No evidence of fluid wave. No pulsatile masses on exam, rebound tenderness, So sign or pain over Mcburney's point. MUSCLES/EXTREMITIES: No abnormal range of motion, no swelling. DERM: Warm, pink and dry. No rashes, dermatoses, petechiae or lesions. NEUROLOGICAL: Speech is clear and appropriate. Normal level of consciousness. Gait and coordination are normal. 5/5 strength in all extremities. PSYCH: Normal mood and affect. Judgement/competence is appropriate Objective Labs 09/20/25 04:57 09/20/25 04:57 Labs: Laboratory Results - last 24 hr 09/18/25 09/19/25 22:37 04:38 WBC 12.1 H 9.0 RBC 4.54 4.09 Hgb 14.4 13.2 Hct 43.9 39.3 MCV 97 96 MCH 31.7 32.3 MCHC 32.8 33.6 RDW Std Deviation 46.5 H 46.7 H Plt Count 277 262 Neut % (Auto) 77 80 Lymph % (Auto) 15 13 [place] % (Auto) 5 6 Eos % (Auto) 2 1 Baso % (Auto) 0 0 Neut # (Auto) 9.3 H 7.2 Lymph # (Auto) 1.9 1.2 [place] # (Auto) 0.7 0.5 Eos # (Auto) 0.2 0.1 Baso # (Auto) 0.1 0.0 Immature Gran # (Auto) 0.04 H 0.02 H Absolute Nucleated RBC 0.00 0.00 Immature Gran % 0 0 Nucleated RBC % 0 0 PT 9.8 INR 0.9 APTT 26.8 Sodium 144 142 Potassium 4.0 4.2 Chloride 110 H 110 H Carbon Dioxide 24.9 24.4 Anion Gap 9 8 BUN 14 16 Creatinine 0.8 0.7 Estim Creat Clear Calc 78.1 89.2 eGFR > 60 > 60 BUN/Creatinine Ratio 18 23 H Glucose 140 H 146 H Calculated Osmolality 289 287 Calcium 9.4 9.1 Corrected Calcium 9.4 9.1 Phosphorus 3.8 Magnesium 2.3 Total Bilirubin 0.3 0.5 AST 27 17 ALT 23 19 Alkaline Phosphatase 89 78 Troponin I < 0.002 Total Protein 6.7 6.0 Albumin 4.9 H 4.4 D Globulin 1.8 L 1.6 L Albumin/Globulin Ratio 2.7 H 2.8 H Lipase 54 H Quality Measures Quality Measures none Assessment & Plan Assessment Current Active Medications: Generic Name Dose Route Start Last Admin Trade Name Freq PRN Reason Stop Dose Admin Acetaminophen 650 mg 09/19/25 03:42 Acetaminophen 325 Mg Tablet PO 10/19/25 03:41 On Hold: 09/19/25 15:31 Q6H PRN Fever >100.4 or pain 1-3 Hydrocodone Bitart/Acetaminophen 1 tab 09/19/25 03:42 Hydrocodone/Apap 5/325 Tablet PO 09/24/25 03:41 On Hold: 09/19/25 15:27 Q4HR PRN PAIN SCALE 4-6 (Moderate Albuterol/Ipratropium 3 ml 09/19/25 12:39 Albuterol/Ipratropium (Duoneb) Rt Lyric 3 Ml Nebu INH 10/19/25 06:59 Q4HRRT PRN WHEEZING Dextrose 25 ml 09/19/25 04:14 Dextrose 50%-Water Inj 50 Ml Syringe IV 10/19/25 04:13 Q15MIN PRN BG 50-70 responsive npo pt Dextrose 50 ml 09/19/25 04:14 Dextrose 50%-Water Inj 50 Ml Syringe IV 10/19/25 04:13 Q15MIN PRN BG <50 OR BG <70 & pt unresponsive Glucagon 1 mg 09/19/25 04:14 Glucagon Inj 1 Mg Vial IM Q15MIN PRN BG <70, and no IV access Hydralazine HCl 10 mg 09/19/25 15:29 Hydralazine Inj 20 Mg/Ml Vial IVP 10/19/25 15:29 Q6H PRN SBP > 160 DBP > 110 Lactated Ringer's 1,000 mls @ 75 mls/hr 09/19/25 03:45 09/19/25 17:55 Lactated Ringers IV 10/19/25 03:44 75 mls/hr .[id number] LUC Administration Acetaminophen 1,000 mg in 100 mls @ 250 mls/hr 09/19/25 19:37 09/19/25 20:21 Ofirmev Inj IV 09/20/25 14:00 250 mls/hr Q6H LUC Administration Insulin Human Lispro 0 unit 09/19/25 18:00 09/19/25 18:43 Insulin Lispro (Admelog) 1 Unit/0.01 Ml Unit SC 10/19/25 17:59 Not Given Q6HR LUC Protocol Losartan Potassium 100 mg 09/19/25 09:00 09/19/25 08:42 Losartan Potassium 25 Mg Tablet PO 10/19/25 08:59 Not Given On Hold: 09/19/25 15:30 QDAY LUC Morphine Sulfate 2 mg 09/19/25 15:28 Morphine Sulf Inj 4 Mg/Ml Vial IVP 09/24/25 15:27 Q4HR PRN PAIN SCALE 4-10(Mod-Sev Ondansetron HCl 4 mg 09/19/25 03:42 Ondansetron Inj 2 Mg/Ml Inj 2 Ml IVP 10/19/25 03:41 Q6H PRN NAUSEA OR VOMITING Protocol Pantoprazole Sodium 40 mg 09/19/25 09:00 09/19/25 08:43 Pantoprazole Inj 40 Mg Vial IVP 10/19/25 08:59 40 mg QDAY LUC Administration Plan 65yo female with a history of Ramu-en-Y gastric bypass (>10 years ago), DM, HTN, asthma presents to the ED for a chief complaint of sudden onset upper abdominal pain that radiates to her back. Patient admitted for SBO. Dr. Carias consulted NGT placed LIS. Patient NPO. #SBO, resolved #constipation Hx of Ramu-en-Y gastric bypass. New onset acute abdominal epigastric and midline pain, causing +NV due to pain. Vomiting moderatley helped her symptoms, but recurred in waves. Patient placed suppository which has not helped her defecate or pass gas. Not currently flatulent or been so since the event. Last BM in AM. On exam, soft abdomen without guarding or rebound tenderness, TTP at midline from epigastrium to bladder. Less likely due to pancreatitis, since lipase is barely elevated, pain may feel like it is going to back, but no signs of pancreatitis on CT imaging. ? Abdominal series was negative for small bowel obstruction Plan: -NPO, will advance diet stepwise (CLD) as soon as patient has an appetite and is able to tolerate intake -NGT-LIS, clamp trial for DC -Dr. Carias consulted -Tylenol for pain 1-3 -Narco 5 for pain 4-6 -Toradol for pain 7-10 #Hx of DMII On insulin in the past, currently on taking metformin. Glucose 140 at admission. Plan: -ISS -Bedside glucose checks ACHS #Hx of HTN Losartan 100mg PO QD at home Plan: -Restarted losartan, but will not be given due to NPO status. #Hx of Asthma Plan: -Incentive spirometry -Duonebs Q4hr prn #Incidental finding on imaging Air within the urinary bladder suspicious for cystitis. Hypodense thyroid nodules, please correlate with thyroid function tests and ultrasound. Patient not mentioning any symptoms of dysuria or bladder pain. TSH within normal range on all prior labs. -follow up outpatient Health Maintenance: Code status: Full DVT prophylaxis: SCDs pending surgery GI prophylaxis: protonix Diet: NPO Echavarria: None Lines: PIV Supplemental O2: None Disposition: Med surg for SBO This case was discussed with my attending physician, Dr. Perez, and senior resident, Dr Watson. Vinh Sevilla, DO PGY I Disclaimer: This note was dictated by speech recognition. Minor errors in cnc grinder may be present due to voice recognition software. Attending Provider Attestation/Addendum I have seen and examined the patient. I was physically present for the [place] portions of the services provided including history, physical exam, diagnosis, treatment plans and orders. I agree with assessment and plan of care as documented by residents. Patient is a 65 years old female with past medical history of Ramu-en-Y gastric bypass surgery, diabetes mellitus, hypertension, asthma who presented to the ED with complaint of sudden onset upper abdominal pain. Patient was found to have SBO and was admitted overnight for further management. At bedside this morning, patient states her abdominal pain has slightly improved. Her nausea and vomiting has resolved, NG tube in place. Abdomen is soft with mild diffuse tenderness. No rebound tenderness or guarding. We will start Gastrografin upper GI series. Surgery on board, appreciate recommendations. Even though this this note was carefully revised there may still be minor errors in cnc grinder due to voice recognition software. Ralph Perez MD
[2025-09-20] VITALS: BP 136/72; PULSE 69; RESP 17; TEMP 36.2; O2SAT 95
[2025-09-20] MEDS: ACETAMINOPHEN IVPB 1,000 MG/100 ML VIAL 250 MG IV (02:04)
[2025-09-20 04:00] VITALS: BP 131/75; PULSE 64; RESP 17; TEMP 36.5; O2SAT 97
[2025-09-20 05:32] LABS: Basophils # (Auto) 0.0 Thou/mm3 (0.0-0.2); Basophils % (Auto) 1 % (0-2.5); Eosinophils # (Auto) 0.2 Thou/mm3 (0.0-0.5); Eosinophils % (Auto) 5 % (0-10); Hematocrit 36.7 % (36.0-46.0); Hemoglobin 11.9 g/dL (12.0-16.0); Immature Granulocytes Auto 0.01 Thou/mm3 (0.00-0.00); Lymphocytes # (Auto) 1.7 Thou/mm3 (1.0-4.8); Lymphocytes % (Auto) 35 % (10-50); Mean Corpuscular HGB Conc 32.4 g/dl (31.0-37.0); Mean Corpuscular Hemoglobin 31.6 pg (25.0-35.0); Mean Corpuscular Volume 97 fL (80-100); Monocytes # (Auto) 0.4 Thou/mm3 (0.0-0.8); Monocytes % (Auto) 9 % (0-12); Neutrophils # (Auto) 2.4 Thou/mm3 (1.8-7.7); Neutrophils % (Auto) 51 % (37-80); Nucleated Red Blood Cell # 0.00 Thou/mm3 (0.00-0.00); Nucleated Red Blood Cell % 0 /100 WBC (0); Platelet Count 223 Thou/mm3 (140-440); RDW Standard Deviation 46.9 fL (36.4-46.3); Red Blood Count 3.77 Miln/mm3 (4.00-5.20); White Blood Count 4.8 Thou/mm3 (3.6-11.0)
[2025-09-20 06:06] LABS: Alanine Aminotransferase 15 U/L (10-49); Albumin, Serum 3.7 gm/dL (3.4-4.8); Albumin/Globulin Ratio 2.6 (1.2-2.2); Alkaline Phosphatase 61 U/L (46-116); Anion Gap 9 (7-16); Aspartate Amino Transferase 19 U/L (0-34); BUN/Creatinine Ratio 21 Ratio (12-20); Bilirubin,Total 0.8 mg/dL (0.3-1.2); Blood Urea Nitrogen 15 mg/dL (9-23); Calcium 8.4 mg/dL (8.3-10.6); Calcium (Corrected) 8.6 mg/dL (8.5-10.1); Carbon Dioxide 27.1 mMol/L (20.0-31.0); Chloride 111 mMol/L (98-107); Creatinine (Component) 0.7 mg/dL (0.6-1.3); Estimated Creatinine Clearance 90.2 mL/min (>60); Globulin 1.4 gm/dL (2.3-3.5); Glucose 115 mg/dL (74-106); Magnesium 2.1 mg/dL (1.6-2.6); Osmolality,Calculated 294 (275-295); Phosphorous 3.5 mg/dL (2.4-5.1); Potassium 3.8 mMol/L (3.4-5.1); Sodium 147 mMol/L (136-145); Total Protein 5.1 gm/dL (5.7-8.2); eGFR > 60 See Note
[2025-09-20 06:51] VITALS: PULSE 64; RESP 17; O2SAT 98
[2025-09-20 08:00] VITALS: BP 132/76; PULSE 69; RESP 17; TEMP 36.3; O2SAT 95
[2025-09-20] MEDS: RINGERS LACTATED 1000 ML 1,000 ML 75 ML IV (08:22)
--- NOTE | 2025-09-20 09:12 | PC.SS ---
Late note 09-19-25: SS met with patient regarding her d/c plan. Pt is alert/oriented. Pt was admitted for SBO. Pt confirmed demographic and contact information is correct on facesheet. Pt resides with dtr and son. Pt ambulates independently without assistance or DME. Pt is ok with all ADLs. Patient?s pharmacy of choice is [facility]. Pt named her dtr, Vashti Ramirez medical decision maker if she is unable. Patient?s choice is to return home upon d/c. Pt states she is diabetic, has glucomter, and test strips. Pt states she is not on dialysis. Pt followed up with PCP 3 months ago. Dtr will provide transportation home. D/C plan: Return home Next of Kin: Vashti Ramirez dtr, phone# [phone] PCP: Dr. Gómez Mark Address: Correct on facesheet
--- NOTE | 2025-09-20 09:13 | PC.SS ---
Follow up note: Pt is on liquid diet. Remove NG Tube. Requiring BM. Pt is possible d/c home tomorrow.
[2025-09-20 12:00] VITALS: BP 153/82; PULSE 70; RESP 18; TEMP 36.4; O2SAT 98
--- NOTE | 2025-09-20 20:53 | ESDS_ITS ---
<Statement entered by Gordon Joe MD - 09/21/25 14:32> Patient seen and examined at bedside. I discussed and supervised with the production internship physician who took care of this patient. I personally saw and examined the patient. I agree with most of the assessment and plan. Plan of care discussed with attending Dr. Perez. 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 Pain in the epigastric and midline abdominal area, causing nausea and vomiting. Patient reported ability to pass flatus. On exam, abdomen was soft without guarding or rebound tenderness. CT imaging was positive for SBO. Lipase 54 mildly elevated, and CT negative for pancreatitis. Patient admitted for SBO. Dr. Carias consulted NGT placed LIS. Patient NPO.? Abdominal series was negative for small bowel obstruction with contrast traveling to the colon. Patient stayed afebrile without leukocytosis, and nasogastric decompression alleviated nausea and abdominal pain. NGT was discontinued and patient's diet advanced to CLD and later to regular which she tolerated well. She was also able to generate multiple bowel movement. At the time of discharge, patient is medically stable and deemed safe to return to his/her previous state of living. Admission diagnoses: #SBO #Constipation #History of type 2 diabetes mellitus #Hypertension #History of asthma #Incidental finding of air within the urinary bladder suspicious for cystitis Discharge instructions: - You were admitted to the hospital for small bowel obstruction, which has resolved you were able to tolerate diet well, your electrolytes and labs are within normal limits. - Continue your diet as tolerated. - We recommend that you follow-up with your primary care physician in 1 week. Discussed the results of anti-smooth muscle antibody titre postivity in the past. - Return to emergency department if your symptoms worsen This case was discussed with my attending physician, Dr. Perez, and senior resident, Dr. Joe. Vinh Sevilla, DO PGY I Disclaimer: This note was dictated by speech recognition. Minor errors in respiratory therapy assistant may be present due to voice recognition software. ? Status at Discharge Cognitive/behavioral status at discharge: stable Functional status at discharge: independent ambulation Overall status at discharge: patient is back to baseline Time Spent with Patient Time attestation: Total time spent providing and/or coordinating discharge services: 33 minutes Time spent: Greater than 30 minutes Exam Vital Signs Temp Pulse Resp BP Pulse Ox O2 Del Method 97.6 F 70 18 153/82 H 98 Room Air 09/20/25 12:00 09/20/25 12:00 09/20/25 12:00 09/20/25 12:00 09/20/25 12:00 09/20/25 12:00 Narrative Exam General: Alert and oriented x3, No apparent distress. Skin: Intact, Warm, no rashes. HEENT: Normocephalic, Atraumatic. Normal neck range of motion, Supple. Trachea midline. Respiratory: Lungs are clear to auscultation. Breath sounds are equal bilaterally with good, symmetric chest expansion. Cardiovascular: RRR, normal S1, S2, No murmurs. Distal pulses 2+ Abdomen: Abdomen non-distended, without erythema, or lesions. Normotensive bowel sounds x4. Percussion tympanic. Palpation soft, nontender in all four quadrants. No organomagely. Absent rigidity, guarding, or rebound. Musculoskeletal/Extremities: No erythema, swelling, tenderness of any joints. No edema of BLE. DP pulses +2/3 b/l. Full active ROM of all four extremities. Neurologic: NEURO: Oriented x3, cranial nerves II to XII grossly intact. Muscle strength 5/5 on UE and LE b/l, Moves extremities x4. Sensation intact to gross touch along C6-T1 and L2-S1 dermatomes. No focal neurologic deficits noted Psych: Thoughts linear and responses appropriate. Discharge Plan Plan Patient Disposition: HOME (Self Care) Patient condition on transfer: Stable Care Plan Goals: - You were admitted to the hospital for small bowel obstruction, which has resolved you were able to tolerate diet well, your electrolytes and labs are within normal limits. - Continue your diet as tolerated. - We recommend that you follow-up with your primary care physician in 1 week. Discussed the results of anti-smooth muscle antibody titre postivity in the past. - Return to emergency department if your symptoms worsen Prescriptions/Referrals Prescriptions/Med Rec: Continued Metformin Hcl 500 MG tablet 1,000 mg PO BID Qty: 0 Losartan Potassium * (COZAAR *) 25 MG tablet 100 mg PO QDAY Qty: 60 albuterol sulfate [ProAir HFA] 8.5 GM HFA aerosol inhaler 2 puff Inhalation PRN PRN (Reason: WHEEZING) Qty: 9 FLUTICASONE/SALMETEROL (ADVAIR 100/50 DISKUS) 1 DISK W/DEV DISK.W.DEV 1 puff Inhalation BID PRN (Reason: wheezing) Qty: 60 meloxicam 15 mg tablet 15 mg PO QDAY Patient Comments: TAKE 1 TABLET BY MOUTH EVERY DAY hydrochlorothiazide 25 mg tablet 25 mg PO QDAY Patient Comments: TAKE 1 TABLET BY MOUTH EVERY DAY bupropion HCl 150 mg tablet sustained-release 12 hr 150 mg PO Q12H Patient Comments: TAKE 1 TABLET BY MOUTH TWICE DAILY Referrals: Gómez Mark MD [Primary Care Provider, Internal Medicine] Patient/Caregiver Discharge Instructions Discharge Activity: activity as tolerated Education Materials: Small Bowel Obstruction, Obstruction Intestinal Print Language: [place] Stand Alone Forms: Olivia Award Info., Patient Portal Info Letter Discharge Order Discharge Orders: Discharge (Routine); Ordered 09/20/25 Ordered By: Ying Watson Quality Discharge Quality Measures VTE prophylaxis Attestestation MD Attestation I have seen and examined the patient. I was physically present for the quezada portions of the services provided including history, physical exam, diagnosis, treatment plans and orders. I agree with assessment and plan of care as documented by residents. Even though this this note was carefully revised there may still be minor errors in respiratory therapy assistant due to voice recognition software. Ralph Perez MD
== END 2025-09-20 15:26 | disposition home or self-care (01) | DRG 390 ==
LOC: SERX 09-19 03:16 → SERHOLD 09-19 04:16 → S3NX 09-19 05:09
PROVIDERS: Physician Assistant; Admitting Provider Internal Medicine; Emergency Provider Emergency Medicine; PCP Internal Medicine; Visit Provider Internal Medicine
DX: K56.609 Unspecified intestinal obstruction, unspecified as to partial versus complete obstruction (principal); Z98.84 Bariatric surgery status; E11.9 Type 2 diabetes mellitus without complications; I10 Essential (primary) hypertension; J45.909 Unspecified asthma, uncomplicated; E04.2 Nontoxic multinodular goiter; Z79.899 Other long term (current) drug therapy
CPT/HCPCS: 36415; 71045; 71260; 74177; 74250; 80053; 83690; 83735; 84100; 84484; 85025; 85610; 85730; 93005; 94640; 94664; 96361; 96374; 96375; 96376; 99284; A4649; A9270; J0131; J2250; J2270; J2405; J2470; J7120; Q9967